=== PATIENT | female | born 1960 | race Native Hawaiian/Other Pacific Islander ===

== ENCOUNTER 2017-08-20 13:22 | Emergency (ER) | payer OTHER ==
[2017-08-20 13:32] VITALS: BP 143/84; PULSE 102; RESP 20; TEMP 98; O2SAT 97
--- NOTE | 2017-08-20 13:50 | ED PDOC ---
HPI: General Adult Time Seen by Provider: 08/20/17 13:45 Chief Complaint (Nursing): Medical Clearance Chief Complaint (Provider): Medical Clearance History Per: Patient History/Exam Limitations: no limitations Onset/Duration Of Symptoms: Days (x1) Additional Complaint(s): 56 year old female with a past medical history of asthma, presents for evaluation after CO exposure, discovered 1 hour prior to arrival. Patient states she feels slightly congested and has a headache at this time. Patient was in the room which was exposed to carbon monoxide. Denies any other symptoms at this time. PMD: Provider TBD Past Medical History Reviewed: Historical Data, Nursing Documentation, Vital Signs Vital Signs: Last Vital Signs Temp 98 F 08/20/17 13:28 Pulse 102 H 08/20/17 13:28 Resp 20 08/20/17 13:28 BP 143/84 08/20/17 13:28 Pulse Ox 97 08/20/17 14:47 - Medical History PMH: Asthma - Surgical History Other surgeries: glaucoma surgery - Family History Family History: States: Unknown Family Hx - Social History Current smoker - smoking cessation education provided: No Alcohol: None Drugs: Denies - Immunization History Hx Tetanus Toxoid Vaccination: (not sure) - Home Medications Home Medications: Ambulatory Orders Medication Instructions Recorded Diclofenac Sodium [Voltaren Gel] 1 drop TP Q4 #1 bot 11/22/14 Gentamicin 0.3% Opht [Genoptic 2 drop OP Q2 #1 bottle 11/22/14 0.3% Opht] - Allergies Allergies/Adverse Reactions: Allergies Allergy/AdvReac Type Severity Reaction Status Date / Time Latex, Natural Rubber AdvReac Severe RASH Verified 08/20/17 13:43 Review of Systems ROS Statement: Except As Marked, All Systems Reviewed And Found Negative Constitutional: Negative for: Weakness ENT: Positive for: Nose Congestion Respiratory: Negative for: Shortness of Breath Gastrointestinal: Negative for: Nausea Neurological: Positive for: Headache Physical Exam - Reviewed Nursing Documentation Reviewed: Yes Vital Signs Reviewed: Yes - Physical Exam Appears: Positive for: Non-toxic, No Acute Distress Head Exam: Positive for: ATRAUMATIC, NORMAL INSPECTION, NORMOCEPHALIC Skin: Positive for: Normal Color Eye Exam: Positive for: Normal appearance Neck: Positive for: Normal Cardiovascular/Chest: Positive for: Regular Rate, Rhythm. Negative for: Murmur Respiratory: Positive for: Normal Breath Sounds. Negative for: Wheezing, Respiratory Distress Extremity: Positive for: Normal ROM Neurologic/Psych: Positive for: Alert, Oriented (x3), Gait (steady), Other ( speech is clear). Negative for: Motor/Sensory Deficits - ECG O2 Sat by Pulse Oximetry: 97 (RA) Pulse Ox Interpretation: Normal - Progress ED Course And Treament: Patient given 100% nonrebreather for 1-1.5 hour Vbg noted CO <2 Patient asymptomatic in ED Medical Decision Making Medical Decision Making: Elevated CO in triage. Had received 100% rebreather NC oxygen. Time: 13:44 Initial Plan: --VBG 13:55 VBG demonstrates CO at 1.6 Scribe Attestation: Documented by Eleonora Clark, acting as a scribe for Amy Marshall PA-C Provider Scribe Attestation: All medical record entries made by the Scribe were at my direction and personally dictated by me. I have reviewed the chart and agree that the record accurately reflects my personal performance of the history, physical exam, medical decision making, and the department course for this patient. I have also personally directed, reviewed, and agree with the discharge instructions and disposition. Disposition - Clinical Impression Clinical Impression: Carbon monoxide exposure - Patient ED Disposition Is Patient to be Admitted: No Counseled Patient/Family Regarding: Studies Performed, Diagnosis - Disposition Disposition: Routine/Home Disposition Time: 14:56 Condition: FAIR Instructions: Carbon Monoxide Poisoning (ED) Forms: [employer] (Azeri)
[2017-08-20 13:51] LABS: VENOUS BLOOD GAS BASE EXCESS 4.5 mmol/L (0.0-2.0); VENOUS BLOOD GAS PCO2 49 mmHg (40-60); VENOUS BLOOD GAS PO2 24 mm/Hg (30-55)
== END 2017-08-20 14:57 | disposition home or self-care (01) ==
LOC: H.ER 13:22
DX: T58.91XA Toxic effect of carbon monoxide from unspecified source, accidental (unintentional), initial encounter (principal); Y99.0 Civilian activity done for income or pay; J45.909 Unspecified asthma, uncomplicated

== ENCOUNTER 2018-09-22 12:46 | Emergency (ER) | payer OTHER ==
[2018-09-22 13:12] VITALS: BP 137/72; PULSE 67; RESP 18; TEMP 98.7; O2SAT 99
--- NOTE | 2018-09-22 14:54 | CP.PCM.CON ---
History of Present Illness - History of Present Illness History of Present Illness: Podiatry consult note for Dr. Aguilar, 57 yo female with pmhx of asthma seen and evaluated in the ED for right foot inversion injury. 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 Patient rates her pain as moderate and denies taking any pain killers for the pain. Patient denies any other pedal complains. Patient denies f/n/v/sob. Pmhx: asthma Pshx: none Allergies: Latex Social history: previous smoker Past Patient History - Past Social History Smoking Status: Never Smoked - CARDIAC Hx Cardiac Disorders: No - PULMONARY Hx Asthma: Yes - HEENT Hx HEENT Problems: Yes Hx Glaucoma: Yes (bilateral) - PSYCHIATRIC Hx Substance Use: No - SURGICAL HISTORY Hx Surgeries: Yes (glaucoma laser surgery 10 yrs. ago) Hx Eye Surgery: Yes (Glaucoma) - ANESTHESIA Hx Anesthesia: Yes Hx Anesthesia Reactions: No Meds Home Medications: Home Medication List Medication Instructions Recorded Confirmed Type Ibuprofen [Motrin Tab] 600 mg PO Q6 PRN 7 Days tab 09/22/18 Rx Allergies/Adverse Reactions: Allergies Allergy/AdvReac Type Severity Reaction Status Date / Time Latex, Natural Rubber AdvReac Severe RASH Verified 01/26/18 20:44 Physical Exam - Constitutional Appears: Well, Non-toxic, No Acute Distress - Head Exam Head Exam: ATRAUMATIC, NORMOCEPHALIC - Eye Exam Eye Exam: Normal appearance Pupil Exam: NORMAL ACCOMODATION - ENT Exam ENT Exam: Mucous Membranes Moist - Extremities Exam Additional comments: Right foot exam: Vascular: DP/PT 2/4, CFT <3 secs x 5, TG warm to warm, no edema or erythema noted at the ankle derm: no open lesions, no ecchymosis, no edema or erythema, no clinical signs of infection ortho: minimal pain with ROM of the ankle, no pain on palpation to the ankle joint neuro: protective sensation intact via ipswich 11/17 Results - Vital Signs Recent Vital Signs: Last Vital Signs Temp 98.7 F 09/22/18 13:09 Pulse 67 09/22/18 13:09 Resp 18 09/22/18 13:09 BP 137/72 09/22/18 13:09 Pulse Ox 99 09/22/18 13:09 Assessment & Plan - Assessment and Plan (Free Text) Assessment: 57 yo female seen and evaluated for right ankle sprain Plan: Patient seen and evaluated History and plan discussed in detail with the attending, Dr Aguilar Right foot x-rays reviewed; no acute osseous injury noted Air cast dispensed Patient advised to WBAT Patient to refrain from high impact activities Ibuprofen prn pain Patient to follow up with Dr. Aguilar in 2 weeks Thank you for the consult
--- NOTE | 2018-09-22 15:14 | ED PDOC ---
Lower Extremity Pain/Injury Time Seen by Provider: 09/22/18 13:14 Chief Complaint (Nursing): Lower Extremity Problem/Injury Chief Complaint (Provider): Right Foot Pain History Per: Patient History/Exam Limitations: no limitations Onset/Duration Of Symptoms: Days (x1) Current Symptoms Are (Timing): Still Present Additional Complaint(s): 57 year old female with pmhx of asthma presents to the ED for evaluation of right foot pain s/p twisting her ankle at work yesterday after she inverted her right foot accidentally. She notes being able to walk on it initially, but this morning when she stepped out of her bed, states feeling pain with pressure and has been limping since. Pt says she had difficulty driving to work this morning, so decided to come have it evaluated. Otherwise denies swelling, numbness, or tingling. PMD: Chidi Bourgeois Past Medical History Reviewed: Historical Data, Nursing Documentation, Vital Signs Vital Signs: Last Vital Signs Temp 98.7 F 09/22/18 13:09 Pulse 67 09/22/18 13:09 Resp 18 09/22/18 13:09 BP 137/72 09/22/18 13:09 Pulse Ox 99 09/22/18 13:09 - Medical History PMH: Asthma - Surgical History Other surgeries: bilateral eye surgery - Family History Family History: States: Unknown Family Hx - Social History Current smoker - smoking cessation education provided: No Ex-Smoker (has not smoked in the last 12 months): Yes Alcohol: None Drugs: Denies - Immunization History Hx Tetanus Toxoid Vaccination: Yes (not sure) Hx Influenza Vaccination: Yes Hx Pneumococcal Vaccination: Yes - Home Medications Home Medications: Ambulatory Orders Medication Instructions Recorded Albuterol HFA [Ventolin HFA 90 2 puff IH [id number] PRN 01/26/18 mcg/actuation (8 g)] Budesonide/Formoterol Fumarate 1 aer IH BID 01/26/18 [Symbicort] Cetirizine HCl [Zyrtec Allergy] 10 mg PO DAILY 01/26/18 Fluticasone Nasal [Flonase] 1 actuation NS DAILY 01/26/18 Ibuprofen [Motrin Tab] 600 mg PO Q6 PRN 7 Days tab 09/22/18 - Allergies Allergies/Adverse Reactions: Allergies Allergy/AdvReac Type Severity Reaction Status Date / Time Latex, Natural Rubber AdvReac Severe RASH Verified 01/26/18 20:44 Review of Systems ROS Statement: Except As Marked, All Systems Reviewed And Found Negative Musculoskeletal: Positive for: Foot Pain (right; no swelling) Neurological: Negative for: Numbness (or tingling) Physical Exam - Reviewed Nursing Documentation Reviewed: Yes Vital Signs Reviewed: Yes - Physical Exam Appears: Positive for: No Acute Distress Pulses-Dorsalis Pedis (L): 2+ Pulses-Dorsalis Pedis (R): 2+ Extremity: Positive for: Normal ROM (flexion and extension of right ankle and all digits), Tenderness (dorsal aspect of right foot: point tenderness between 3rd-4th metatarsals with no ecchymosis, edema, or erythema noted), Capillary Refill (less than 2 seconds) Neurologic/Psych: Positive for: Alert, Oriented (x3). Negative for: Motor/Sensory Deficits - ECG O2 Sat by Pulse Oximetry: 99 (RA) Pulse Ox Interpretation: Normal Medical Decision Making Medical Decision Making: Time: 1422 Initial Impression: right foot pain Initial Plan: --Ibuprofen 600mg PO --Right foot XR --Podiatry consult placed 1500 XR reviewed by RAYMUNDO for no acute fx or dislocation. Patient informed that if there is any discrepancy in the official read, she will be notified. 1510 Emiliana Bales, podiatry, at bedside evaluating pt. She recommends giving an air cast and following up with Dr. Aguilar if problems persist or worsen. Scribe Attestation: Documented by Karma Nieto, acting as a scribe for Delaney Hernandez PA-C. Provider Scribe Attestation: All medical record entries made by the Scribe were at my direction and personally dictated by me. I have reviewed the chart and agree that the record accurately reflects my personal performance of the history, physical exam, medical decision making, and the department course for this patient. I have also personally directed, reviewed, and agree with the discharge instructions and disposition. Disposition - Clinical Impression Clinical Impression: Ankle injury Counseled Patient/Family Regarding: Studies Performed, Diagnosis - Disposition Referrals: Bulmaro Aguilar MD [Staff Provider] - Disposition Time: 15:37 Condition: STABLE Additional Instructions: F/u with Dr. Aguilar ( ) in 2 weeks if pain persists. Use Aircast for comfort for the next few days. Take Tylenol and Ibuprofen for the pain. Prescriptions: Ibuprofen [Motrin Tab] 600 mg PO Q6 PRN 7 Days tab PRN Reason: Pain, Moderate (4-7) Forms: [facility] (Ukrainian), [facility] School/Work Excuse Print Language: TAJIK
--- NOTE | 2018-09-22 15:34 | RAD ---
Date of service: 09/22/2018 PROCEDURE: Right Foot Radiographs. HISTORY: inversion injury, pain at 3rd metatarsal COMPARISON: None. FINDINGS: BONES: Normal. No fracture. JOINTS: Normal. SOFT TISSUES: Normal. OTHER FINDINGS: None. IMPRESSION: Normal right foot radiographs.
== END 2018-09-22 16:18 | disposition home or self-care (01) ==
LOC: H.ER 12:46
DX: S99.911A Unspecified injury of right ankle, initial encounter (principal); X50.1XXA Overexertion from prolonged static or awkward postures, initial encounter; Y93.01 Activity, walking, marching and hiking; Y92.239 Unspecified place in hospital as the place of occurrence of the external cause; Y99.0 Civilian activity done for income or pay; J45.909 Unspecified asthma, uncomplicated; Z87.891 Personal history of nicotine dependence